=== PATIENT | male | born 1960 | race Caucasian/White ===

== ENCOUNTER 2020-11-04 11:48 | Emergency (ER) | payer OTHER ==
--- NOTE | 2020-11-04 12:11 | ED Physician Documentation ---
PD HPI CHEST PAIN - Stated complaint Stated Complaint: CHEST PX/LT SHOULDER PX - Chief complaint Chief Complaint: Cardiac - History obtained from History obtained from: Patient - History of Present Illness Timing - onset: Enter time (1114), Today Timing - onset during: Light activity Timing - duration: Hours (1) Timing - details: Abrupt onset, Still present Pain level max: 4 Pain level now: 1 Quality: Pressure Location: Substernal, Left chest Radiation: Jaw, Left upper extremity Improved by: Rest Associated symptoms: Shortness of air, Diaphoresis. No: Nausea, Vomiting, Feeling faint / dizzy, General Weakness, Palpitations, Cough Similar symptoms before: No diagnosis Recently seen: Not recently seen - Additional information Additional information: Previously well 60-year-old male with history of hypertension and diabetes has developed some chest pain today while he was out moving some things around in his garage. He states that the pain was in his anterior chest and when he noted it radiated up to his jaw and up to his left arm he became concerned and looked up his symptoms. He states that similar symptoms happened to him 6 days ago while he was in [place] at that time he was resting. The symptoms resolved spontaneously. Review of Systems Constitutional: denies: Fever Eyes: denies: Decreased vision Ears: denies: Ear pain Nose: denies: Rhinorrhea / runny nose, Congestion Throat: denies: Sore throat Cardiac: reports: Chest pain / pressure. denies: Palpitations Respiratory: denies: Dyspnea, Cough GI: denies: Abdominal Pain, Nausea, Vomiting : denies: Dysuria, Frequency Skin: denies: Rash Musculoskeletal: reports: Neck pain, Extremity pain. denies: Back pain Neurologic: denies: Generalized weakness, Focal weakness, Numbness PD PAST MEDICAL HISTORY - Present Medications Home Medications: Ambulatory Orders Medication Instructions Recorded Confirmed Atorvastatin [Lipitor] 10 mg PO DAILY 11/04/20 11/04/20 Losartan Potassium 25 mg PO DAILY 11/04/20 11/04/20 metFORMIN [Glucophage] 2,000 mg PO DAILY PM 11/04/20 11/04/20 - Allergies Allergies/Adverse Reactions: Allergies Allergy/AdvReac Type Severity Reaction Status Date / Time No Known Drug Allergies Allergy Verified 11/04/20 11:58 PD ED PE NORMAL - Vitals Vital signs reviewed: Yes (hypertensive) - General General: Alert and oriented X 3, No acute distress, Well developed/nourished - HEENT HEENT: Atraumatic, PERRL, EOMI - Neck Neck: Supple, no meningeal sign, No bony TTP - Cardiac Cardiac: RRR, No murmur - Respiratory Respiratory: No respiratory distress, Clear bilaterally - Abdomen Abdomen: Soft, Non tender - Back Back: No CVA TTP, No spinal TTP - Derm Derm: Normal color, Warm and dry, No rash - Extremities Extremities: No deformity, No edema - Neuro Neuro: Alert and oriented X 3, equipment lead 2-12 intact, No motor deficit, No sensory deficit, Normal speech Eye Opening: Spontaneous Motor: Obeys Commands Verbal: Oriented GCS Score: 15 - Psych Psych: Normal mood, Normal affect Results - Vitals Vitals: Vital Signs - 24 hr 11/04/20 11/04/20 11/04/20 11:58 12:31 12:34 Temperature 36.7 C Heart Rate 76 76 74 Respiratory 19 16 19 Rate Blood Pressure 183/99 H 140/75 H 140/75 H O2 Saturation 100 98 99 Oxygen O2 Source Room air - EKG (time done) 1154 Rate: Rate (enter#) (73) Rhythm: NSR Ischemia: ST depression (non-specific inferior leads) Compare to prior EKG: Old EKG unavailable Computer interpretation: Agree with computer - Labs Labs: Laboratory Tests 11/04/20 11/04/20 11/04/20 12:00 12:00 12:00 WBC 7.9 RBC 5.37 Hgb 16.2 Hct 45.7 MCV 85.1 MCH 30.2 MCHC 35.4 RDW 12.3 Plt Count 166 MPV 10.6 Neut # (Auto) 5.2 Lymph # (Auto) 1.9 [place] # (Auto) 0.5 Eos # (Auto) 0.2 Baso # (Auto) 0.1 Absolute Nucleated RBC 0.00 Nucleated RBC % 0.0 Sodium 134 L Potassium 3.9 Chloride 98 L Carbon Dioxide 23 Anion Gap 13.0 BUN 16 Creatinine 1.0 Estimated GFR (MDRD) 77 L Glucose 301 H POC Whole Bld Glucose Calcium 9.7 Total Bilirubin 0.9 AST 21 ALT 36 Alkaline Phosphatase 89 Troponin I High Sens 20.5 H* Total Protein 8.0 Albumin 4.9 Globulin 3.1 Albumin/Globulin Ratio 1.6 Lipase 49 11/04/20 12:05 WBC RBC Hgb Hct MCV MCH MCHC RDW Plt Count MPV Neut # (Auto) Lymph # (Auto) [place] # (Auto) Eos # (Auto) Baso # (Auto) Absolute Nucleated RBC Nucleated RBC % Sodium Potassium Chloride Carbon Dioxide Anion Gap BUN Creatinine Estimated GFR (MDRD) Glucose POC Whole Bld Glucose 296 H Calcium Total Bilirubin AST ALT Alkaline Phosphatase Troponin I High Sens Total Protein Albumin Globulin Albumin/Globulin Ratio Lipase - Rads (name of study) chest Radiology: Prelim report reviewed (Impression: No acute cardiopulmonary disease process.), EMP read indepedently, See rad report PD MEDICAL DECISION MAKING - ED course Complexity details: reviewed results, re-evaluated patient, considered differential, d/w patient, d/w trial consultant (Dr. Quispe cardiology at [facility] recommends transfer to hospitalist service for trending of the trop and addittion of plavix. ) ED course: 60-year-old male with a history of diabetes and hypertension and a family history of heart disease has developed chest pain he has had an episode last week that was brief about an hour and today he has had another episode this time with radiation into his jaw and his shoulder. This occurred under physical activity. He has subsequently had resolution of his pain. The constellation of the patient's symptoms are concerning for acute coronary syndrome and he has a mildly elevated troponin. He has some very subtle electrocardiographic findings of ST depression in the inferior leads. Departure - Departure Disposition: 02 Transfer Acute Care Hosp Clinical Impression: NSTEMI (non-ST elevated myocardial infarction)
[2020-11-04 12:17] LABS: BASOPHILS # (AUTO) 0.1 10^3/uL (0.0-0.1); EOSINOPHILS # (AUTO) 0.2 10^3/uL (0.0-0.7); EOSINOPHILS % (AUTO) 2.7 %; HCT - HEMATOCRIT 45.7 % (42.0-52.0); HGB - HEMOGLOBIN 16.2 g/dL (14.0-18.0); LYMPHOCYTES # (AUTO) 1.9 10^3/uL (1.5-3.5); LYMPHOCYTES % (AUTO) 23.5 %; MEAN CORPUSCULAR HEMOGLOBIN 30.2 pg (27.0-31.0); MEAN CORPUSCULAR HGB CONC 35.4 g/dL (32.0-36.0); MEAN CORPUSCULAR VOLUME 85.1 fL (80.0-94.0); MEAN PLATELET VOLUME 10.6 fL (7.4-11.4); MONOCYTES # (AUTO) 0.5 10^3/uL (0.0-1.0); MONOCYTES % (AUTO) 6.9 %; NEUTROPHILS # (AUTO) 5.2 10^3/uL (1.5-6.6); NEUTROPHILS % (AUTO) 65.5 %; PLT - PLATELET COUNT 166 10^3/uL (130-450); RED BLOOD COUNT 5.37 10^6/uL (4.70-6.10); RED CELL DISTRIBUTION WIDTH 12.3 % (12.0-15.0); WHITE BLOOD COUNT 7.9 x10^3/uL (4.8-10.8)
--- NOTE | 2020-11-04 12:33 | XRAY Report ---
PROCEDURE: Chest 1 View X-Ray INDICATIONS: Chest pain TECHNIQUE: One view of the chest was acquired. COMPARISON: None FINDINGS: Surgical changes and devices: None. Lungs and pleura: No pleural effusions or pneumothorax. Lungs are clear. Mediastinum: Mediastinal contours appear normal. Heart size is normal. Bones and chest wall: No suspicious bony lesions. Overlying soft tissues appear unremarkable. IMPRESSION: No acute cardiopulmonary disease process. Reviewed by: Tete Escobar MD, PhD on 11/04/2020 12:32 PM PDT Approved by: Tete Escobar MD, PhD on 11/04/2020 12:32 PM PDT Station ID: [id number]
[2020-11-04 12:35] LABS: ALBUMIN 4.9 g/dL (3.2-5.5); ALBUMIN/GLOBULIN RATIO 1.6 (1.0-2.2); BILIRUBIN,TOTAL 0.9 mg/dL (0.2-1.0); CALCIUM 9.7 mg/dL (8.5-10.3); POTASSIUM 3.9 mmol/L (3.5-5.0)
[2020-11-04] MEDS ORDERED: ASPIRIN CHEW 81 MG TABLET PO STA (12:47)
[2020-11-04] MEDS ORDERED: CLOPIDOGREL 75 MG TABLET PO STA (12:54)
[2020-11-04] MEDS ORDERED: HEPARIN 25000UNITS/500ML (D5W) 25,000 UNIT/500 ML BAG IV SCH (13:00)
[2020-11-04 14:07] VITALS: BP 155/76
[2020-11-04 14:19] LABS: B. PARAPERTUSSIS- RESP PCR PAN NOT DETECTED; B. PERTUSSIS- RESP PCR PANEL NOT DETECTED; C. PNEUMONIAE- RESP PCR PANEL NOT DETECTED; CORONAVIRUS 229E-RESP PCR NOT DETECTED; CORONAVIRUS HKU1-RESP PCR NOT DETECTED; CORONAVIRUS NL63-RESP PCR NOT DETECTED; CORONAVIRUS OC43-RESP PCR NOT DETECTED; HUMAN METAPNEUMOVIRUS NOT DETECTED; INFLUENZA A- RESP PCR PANEL NOT DETECTED; INFLUENZA B - RESP PCR PANEL NOT DETECTED; M. PNEUMONIAE- RESP PCR PANEL NOT DETECTED; PARAINFLUENZA VIRUS 1 NOT DETECTED; PARAINFLUENZA VIRUS 2 NOT DETECTED; PARAINFLUENZA VIRUS 3 NOT DETECTED; PARAINFLUENZA VIRUS 4 NOT DETECTED; RHINOVIRUS/ENTEROVIRUS DETECTED; RSV- RESP PCR PANEL NOT DETECTED; SARS-CoV-2 -RESP PCR PANEL NOT DETECTED
== END 2020-11-04 14:35 | disposition short-term general hospital (02) ==
LOC: ED 11:48
DX: I21.4 Non-ST elevation (NSTEMI) myocardial infarction (principal); I10 Essential (primary) hypertension; E11.9 Type 2 diabetes mellitus without complications; Z79.84 Long term (current) use of oral hypoglycemic drugs; R77.8 Other specified abnormalities of plasma proteins; Z20.822 Contact with and (suspected) exposure to COVID-19
CPT/HCPCS: 0202U; 36415; 71045; 80053; 83690; 84484; 85025; 93005; 96374; 99284; 99285; A9270

== ENCOUNTER 2020-11-04 14:32 | Outpatient (CLI) | payer OTHER ==
--- OUTSIDE RECORDS SUMMARY | 2020-11-09 02:23 | EXTERNAL MEDICAL SUMMARY RPT | Continuity of Care Document ---
:1960 Demographics Phone Unavailable Preferred Language Unknown Marital Status Unknown Restorationism Affiliation Unknown Race Unknown Ethnic Group Unknown Author Organization [facility] Address [address] [place] [address] Phone Problems date description facility [id number] Non-ST elevation (NSTEMI) myocardial [facility] [employer] infarction Social History date description facility [id number]
== END 2020-11-04 14:33 | disposition short-term general hospital (02) ==
LOC: EMS 14:32
DX: I21.4 Non-ST elevation (NSTEMI) myocardial infarction (principal)
CPT/HCPCS: A0425; A0426